=== PATIENT | female | born 1955 | race Caucasian/White ===

== ENCOUNTER → 2021-08-26 06:52 | Outpatient (CLI) | payer OTHER, SELFPAY ==
--- NOTE | ~2021-08-26 | MR_ITS ---
EXAMINATION: MR shoulder RT wo con DATE: 08/26/2021 07:38 INDICATION: Right shoulder pain TECHNIQUE: Magnetic resonance imaging (MRI) of the right shoulder was performed without intravenous c ontrast. Sequences included axial PD-weighted FS FSE, coronal oblique PD-weighted FS FSE, coronal obl ique T2-weighted FS FSE, sagittal PD-weighted FS FSE, and sagittal T1-weighted SE. COMPARISON: None. FINDINGS: Coracoacromial arch: The acromion undersurface is flat in morphology (type I). The coracoacromial ligament is normal. Mode rate acromioclavicular osteoarthritis. Rotator cuff: Mild supraspinatus and anterior infraspinatus tendinopathy. There is a full-thickness split tear at t he greater tuberosity footplate of the conjoined portion of the supraspinatus and infraspinatus tendo ns with very thin linear fluid signal extending obliquely from the bursal to the articular side of th e tendon but without a measurable tear defect or retracted tear margin. The teres minor and subscapul marivel tendons are normal. Normal rotator cuff muscle bulk and signal. Biceps tendon, glenoid labrum and glenohumeral cartilage: Long head of the biceps tendon is normal. Glenoid labrum is normal. Mild partial thickness cartilage loss with smooth chondral surfaces at the central aspect of the glenoid. Tiny marginal osteophytes al tamar the inferior glenoid. Additional mild partial-thickness cartilage loss with smooth chondral surfa ce along the inferomedial aspect of the humeral head. Fluid: Physiologic amount of fluid in the glenohumeral joint and biceps tendon sheath. No loose osteochondr al bodies. Small amount of fluid in the subacromial/subdeltoid bursa consistent with mild bursitis. Bones: Normal marrow signal with no edema, fracture or abnormal marrow replacing process. IMPRESSION: 1. Mild supraspinatus and infraspinatus tendinopathy with very thin full-thickness split tear extendi ng between the otherwise intact appearing fibers of the conjoined portion of the tendon. 2. Mild glenohumeral and moderate acromioclavicular osteoarthritis. 3. Mild subacromial/subdeltoid bursitis. Reviewed, dictated and finalized at location D. IMPRESSION: 1. Mild supraspinatus and infraspinatus tendinopathy with very thin full-thickn ess split tear extending between the otherwise intact appearing fibers of the c onjoined portion of the tendon. 2. Mild glenohumeral and moderate acromioclavicular osteoarthritis. 3. Mild subacromial/subdeltoid bursitis.
== END ==
PROVIDERS: PCP Family Medicine; Visit Provider Orthopaedic Surgery
DX: M75.51 Bursitis of right shoulder (principal); M19.011 Primary osteoarthritis, right shoulder
CPT/HCPCS: 73221